=== PATIENT | male | born 1970 | race American Indian/Alaskan Native ===

== ENCOUNTER 2018-01-26 13:04 | Emergency (ER) | payer MEDICARE ==
[2018-01-26] MEDS ORDERED: SUBLIMAZE IV ONE (13:10)
[2018-01-26] MEDS ORDERED: NACL 0.9% 1000 ML 1,000 ML IV ONE (13:10)
[2018-01-26] MEDS ORDERED: D50W (25GM) Vial IV ONE ×2 (13:10→14:41)
[2018-01-26] MEDS ORDERED: ZOFRAN IV ONE (13:10)
[2018-01-26] MEDS ORDERED: D50W (25GM) Syringe IV ONE ×2 (13:16→14:00)
[2018-01-26 14:18] LABS: Basophils % (Auto) 0.4 % (0.0-1.8); Eosinophils # (Auto) 0.1 K/mm3 (0.0-0.4); Eosinophils % (Auto) 1.9 % (0.0-4.3); Hemoglobin 15.2 gm/dl (11.8-15.2); Lymphocytes # (Auto) 1.1 K/mm3 (1.2-5.4); Mean Corpuscular HGB Conc 32 % (32-34); Mean Corpuscular Hemoglobin 28 pg (28-32); Mean Corpuscular Volume 86 fl (84-94); Monocytes # (Auto) 0.6 K/mm3 (0.0-0.8); Monocytes % (Auto) 9.2 % (0.0-7.3); Platelet Count 275 K/mm3 (140-440); Red Blood Count 5.49 M/mm3 (3.65-5.03)
[2018-01-26 14:30] LABS: BUN/Creatinine Ratio 15; Blood Urea Nitrogen 12 mg/dL (9-20); Calcium 9.4 mg/dL (8.4-10.2); Hemolysis Index 7
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
[2018-01-26 17:10] VITALS: BP 142/79
== END 2018-01-26 17:09 | disposition home or self-care (01) ==
LOC: ED 13:04
DX: E11.641 Type 2 diabetes mellitus with hypoglycemia with coma (principal); E86.0 Dehydration; Z79.4 Long term (current) use of insulin
CPT/HCPCS: 36415; 80048; 82962; 85025; 96361; 96374; 96375; 99284; J2405; J3010; J7030

== ENCOUNTER 2018-05-19 18:24 | Emergency (ER) | payer MEDICARE ==
[2018-05-19] MEDS ORDERED: D50W (25GM) Syringe IV ONE ×2 (18:48→18:52)
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
[2018-05-19 19:27] LABS: Basophils % (Auto) 0.9 % (0.0-1.8); Eosinophils # (Auto) 0.1 K/mm3 (0.0-0.4); Eosinophils % (Auto) 1.4 % (0.0-4.3); Hematocrit 47.9 % (35.5-45.6); Hemoglobin 15.6 gm/dl (11.8-15.2); Lymphocytes # (Auto) 0.8 K/mm3 (1.2-5.4); Lymphocytes % (Auto) 15.1 % (13.4-35.0); Mean Corpuscular HGB Conc 33 % (32-34); Mean Corpuscular Hemoglobin 28 pg (28-32); Mean Corpuscular Volume 86 fl (84-94); Monocytes # (Auto) 0.4 K/mm3 (0.0-0.8); Monocytes % (Auto) 7.1 % (0.0-7.3); Platelet Count 183 K/mm3 (140-440); Red Blood Count 5.58 M/mm3 (3.65-5.03); Red Cell Distribution Width 15.7 % (13.2-15.2)
[2018-05-19 19:33] LABS: BUN/Creatinine Ratio 9; Blood Urea Nitrogen 8 mg/dL (9-20); Calcium 8.9 mg/dL (8.4-10.2); Hemolysis Index 66
[2018-05-19 21:41] LABS: Bilirubin,Urine NEG (Negative); Blood,Urine NEG (Negative); Color,Urine Yellow (Yellow); Mucus,Urine FEW /HPF
[2018-05-19 22:11] VITALS: BP 147/87
== END 2018-05-20 00:13 | disposition home or self-care (01) ==
LOC: ED 18:24
DX: E11.649 Type 2 diabetes mellitus with hypoglycemia without coma (principal); I10 Essential (primary) hypertension; E11.9 Type 2 diabetes mellitus without complications; I25.2 Old myocardial infarction
CPT/HCPCS: 36415; 80048; 81001; 82962; 85025; 96374; 99284